=== PATIENT | female | born 1950 ===

== ENCOUNTER 2017-10-31 06:00 | Day surgery (SDC) | payer OTHER | END 2017-10-31 09:15 | disposition home or self-care (01) | LOC: AMB-ENDOS 06:00 → CIR.AMB 13:00 | DX: D12.2 Benign neoplasm of ascending colon (principal) ==

== ENCOUNTER 2018-06-26 08:31 | Day surgery (SDC) | payer OTHER | END 2018-06-26 13:15 | disposition home or self-care (01) | LOC: AMB-ENDOS 08:31 | DX: K57.30 Diverticulosis of large intestine without perforation or abscess without bleeding (principal); K64.1 Second degree hemorrhoids ==